=== PATIENT | male | born 2005 | race Caucasian/White ===

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

== ENCOUNTER 2023-07-09 17:42 | Emergency (ER) | payer OTHER, MEDICAID, SELFPAY ==
[2023-07-09 17:56] VITALS: BP 119/68; PULSE 83; RESP 18; TEMP 36.9; O2SAT 99; BMI 16.9
--- NOTE | 2023-07-09 18:01 | ED.URI ---
HPI - URI/Sore Throat General Chief Complaint: Upper Respiratory Symptoms Stated Complaint: cough, stuffy nose, tonsils hurt Time Seen by Provider: 07/09/23 18:01 Source: patient Mode of arrival: Ambulatory History of Present Illness HPI Narrative: 17M daily smoker without chronic medical history presents to the emergency department today with a chief complaint of 24 hours or so of sore throat, stuffy nose, shortness of breath and cough. He denies any obvious fever chills. Denies any chest pain has no vomiting or diarrhea. Related Data Home Medications Medication Instructions Recorded Confirmed No Known Home Medications 10/18/19 10/14/21 Allergies Allergy/AdvReac Type Severity Reaction Status Date / Time No Known Drug Allergies Allergy Verified 07/09/23 17:55 Review of Systems Review of Systems Narrative: GENERAL: See HPI HEENT: See HPI RESPIRATORY: See HPI CARDIOVASCULAR: Denies chest pain, palpitations, orthopnea, edema, GASTROINTESTINAL: Denies nausea, vomiting, abdominal pain, diarrhea, constipation, melena. : Denies dysuria, frequency, incontinence, hematuria, urinary retention. MUSCULOSKELETAL: denies weakness, joint pain, or bony pain SKIN: Denies rash, skin lesions, or other NEUROLOGIC: Denies weakness, headache, numbness, change in speech, confusion, seizures, incoordination. PSYCHIATRIC: No concerning psychosocial issues. 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 Extraoccular muscles are intact bilaterally. There is no subconjunctival hemorrhage or exudate. ENT: Clear drainage in the posterior pharynx, no tonsillar swelling, erythema or exudate, airway patent CHEST: Lungs are clear to auscultation bilaterally and free of wheezes, rales, or rhonchi. Heart rate is regular rhythm, there are no murmurs, clicks, rubs, or gallops. There is no chest wall tenderness. ABD: Abdomen is soft and nontender. There is no guarding or rebound. Bowel sounds are normal in all 4 quadrants. There is no mass or organomegaly. EXT: Full painless ROM of all extremities with no loss of sensation or strength. SKIN: Warm, pink, and dry. No erythema or rash Initial Vital Signs Initial Vital Signs: Vital Signs Temperature 98.4 F 07/09/23 17:56 Pulse Rate 83 07/09/23 17:56 Respiratory Rate 18 07/09/23 17:56 Blood Pressure 119/68 07/09/23 17:56 Pulse Oximetry 99 07/09/23 17:56 Oxygen Delivery Method Room Air 07/09/23 17:56 Course Orders Ordered: ED Orders 07/09/23 18:10 Covid-19 + FLU A/B + RSV - PCR Stat Strep Grp A by PCR Rapid Stat Throat Culture Stat Discontinued Medications Albuterol (Albuterol Hfa Prepack) 1 box MISC SEEINSTR ONE Stop: 07/09/23 18:51 Last Admin: 07/09/23 18:55 Dose: 1 box Documented By: DOMENIC Vital Signs Vital signs: Vital Signs - 8 hr 07/09/23 19:12 Pulse Rate 67 Respiratory Rate 18 Blood Pressure 123/60 Pulse Oximetry 99 Oxygen Delivery Method Room Air MDM - URI/Sore Throat Lab Data Labs: Lab Results 07/09/23 07/09/23 Range/Units 18:10 18:10 SARS-CoV-2 (PCR) Negative (Negative) Influenza A (RT-PCR) Flu a negative (NEGATIVE) Influenza B (RT-PCR) Flu b negative (NEGATIVE) RSV (PCR) Negative (Negative) Group A Strep (PCR) Negative (Negative) MDM Narrative Medical decision making narrative: [17] year old patient presents with typical URI symptoms Multiple etiologies for patient's symptoms considered including, but not limited to: [COVID versus flu versus strep versus other Prior Charts reviewed in our EMR Primary Historian: patient Labs reviewed and interpreted by myself: Respiratory panel negative for COVID, flu and RSV, strep negative, throat culture pending Patient with reassuring history and physical exam, he does have rather typical URI symptoms without signs of sepsis, respiratory distress. He does have some element of bronchospastic cough and for this reason albuterol MDI with spacer and training is ordered and he has improved symptoms. No signs of respiratory distress, no indication for antibiotics Patient's symptoms improved over duration of stay with above-stated therapies. Findings and discharge diagnosis discussed with patient/family followed by verbalization of understanding Return precautions discussed with patient/family whom verbalize understanding of diagnosis and plan Discharge Plan Departure Patient Disposition: Home Clinical Impression: Upper respiratory infection Instructions: Common Cold, Bronchospasm-Adult Activity Restrictions/Additional Instructions: *You have been diagnosed with [various symptoms due to viral upper respiratory infection. The swab for COVID and Flu is negative *What to do: *Please consider the use of [id number] antihistamines such as Zyrtec, Aurea, or Claritin which can dry the secretions that are causing many of these symptoms. *Please use [id number] Tylenol or Motrin for pain, it can be helpful to take it on a schedule for a few days to get ahead of the pain and inflammation * your history and physical exam are very reassuring and there is no indication that the symptoms are due to a bacterial infection, therefore there is no indication for antibiotics. *Please follow up with your primary care provider in 2-3 days, call for an appointment. Let them know you were seen in the Emergency Department and that we ask that you be seen in follow up. We will electronically transmit a record of today's note if your PCP is in our system *If you do not have a primary care provider please contact the [facility] Resource line at [phone]. They will ask some questions about your medical history and help get you set up with a doctor in the community. *Return to Emergency Department if you should have any new, worsening or concerning symptoms such as difficulty breathing, persistent vomiting, shaking chills or other concerning symptoms Prescriptions: No Action No Known Home Medications Stand Alone Forms: Patient Portal/API
[2023-07-09 18:26] LABS: Strep Grp A by PCR Rapid Negative (Negative)
[2023-07-09 18:53] LABS: COVID-19 CEPHEID 4-PLEX PCR Negative (Negative); Influenza A - CEPHEID Flu A NEGATIVE (NEGATIVE); Influenza B - CEPHEID Flu B NEGATIVE (NEGATIVE); Respiratory Syncytial Virus Negative (Negative)
[2023-07-09] MEDS: ALBUTEROL HFA PREPACK 1 BOX MISC (18:55)
[2023-07-09 19:12] VITALS: BP 123/60; PULSE 67; RESP 18; O2SAT 99
== END 2023-07-09 19:13 | disposition home or self-care (01) ==
PROVIDERS: Emergency Provider Emergency Medicine
DX: J06.9 Acute upper respiratory infection, unspecified (principal); Z20.822 Contact with and (suspected) exposure to COVID-19
CPT/HCPCS: 0241U; 87070; 87077; 87651; 99282

== ENCOUNTER → 2024-09-21 15:50 | Outpatient (CLI) | payer OTHER, MEDICAID, SELFPAY ==
--- NOTE | 2024-09-21 15:52 | DI.RAD.S_ITS ---
PROCEDURE: XR CHEST 2V INDICATIONS: Intermittent chest pain, h/o cat-scratch disease TECHNIQUE: 2 views of the chest were acquired. COMPARISON: [facility], CR, XR CHEST 2V, 03/17/2022, 9:44. FINDINGS: Surgical changes and devices: None. Lungs and pleura: Lungs are clear. No pleural effusions or pneumothorax. Mediastinum: Mediastinal contours are normal. Heart size is normal. Bones and chest wall: No suspicious bony abnormalities. Soft tissues appear unremarkable. IMPRESSION: No acute cardiopulmonary pathology. Dictated by: Yaw Uriarte M.D. on 09/21/2024 at 18:18 Approved by: Yaw Uriarte M.D. on 09/21/2024 at 18:19
--- NOTE | 2024-09-21 16:15 | EKG_ITS ---
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
[2024-09-21 17:44] LABS: Hematocrit 41.4 % (41-53); Hemoglobin 13.9 g/dL (13.5-17.5); Mean Corpuscular HGB Conc 33.6 % (30-36); Mean Corpuscular Hemoglobin 30.1 PG (26-34); Mean Corpuscular Volume 89.7 fL (80-100); Platelet Count 257 X10^3/uL (150-400); Red Blood Cell Count 4.61 X10^6/uL (4.5-5.9); Red Cell Distribution Width 13.3 % (11.6-14.8); White Blood Cell Count 7.5 X10^3/uL (4.5-11.0)
[2024-09-21 18:10] LABS: Alanine Aminotransferase 21 IU/L (<50); Albumin 4.8 g/dL (3.5-5.0); Albumin Globulin Ratio 1.8 (1.0-2.8); Alkaline Phosphatase 57 U/L (38-126); Aspartate Aminotransferase 30 IU/L (17-59); BUN Creatinine Ratio 14.3 (6-22); Bilirubin Total 1.1 mg/dL (0.2-1.3); Blood Urea Nitrogen 12 mg/dL (9-20); C-Reactive Protein Quant < 0.5 mg/dL (<1.0); Calcium 9.8 mg/dL (8.4-10.2); Carbon Dioxide 29 mmol/L (22-32); Chloride 102 mmol/L (98-107); Creatine Kinase 190 U/L (55-170); Estimated Glomerular Filt Rate > 60 mL/min (>60); Globulin 2.7 g/dL (1.7-4.1); Glucose 86 mg/dL (70-100); HEMOLYSIS < 15 (0-50); Potassium 4.1 mmol/L (3.4-5.1); Sodium 141 mmol/L (137-145); Total Protein 7.5 g/dL (6.3-8.2)
[2024-09-21 19:44] LABS: Neutrophils Absolute Manual 5700 /uL (3000-5900); Total Cells Counted 100
[2024-09-21 19:45] LABS: RBC Morphology Normal Morphology
[2024-09-21 19:58] LABS: Erythrocyte Sedimentation Rate 2 MM/HR (0-15)
[2024-09-26 10:07] LABS: B. henselae IgG Negative titer (Neg:<1:320); B. henselae IgM Negative titer (Neg:<1:100); B. quintana IgG Negative titer (Neg:<1:320); B. quintana IgM Negative titer (Neg:<1:100)
== END ==
PROVIDERS: PCP Family Medicine; Referring Provider Family Medicine; Visit Provider Family Medicine
DX: A28.1 Cat-scratch disease (principal); M35.3 Polymyalgia rheumatica; M25.50 Pain in unspecified joint
CPT/HCPCS: 36415; 71046; 80053; 82550; 85025; 85651; 86140; 86611; 93005; 93010

== ENCOUNTER 2024-10-18 11:07 | Emergency (ER) | payer OTHER, SELFPAY ==
[2024-10-18 11:09] VITALS: BP 131/71; PULSE 60; RESP 18; TEMP 37.1; O2SAT 98; BMI 19.8
--- NOTE | 2024-10-18 11:41 | ED_ITS ---
HPI - Back Pain/Injury <Mara Bird PA-C - Last Filed: 10/18/24 11:46> General Chief Complaint: Back Pain/Injury Stated Complaint: Mid back pain Time Seen by Provider: 10/18/24 11:23 Source: patient History of Present Illness HPI Narrative: 19-year-old male presents to the ED with 1 day of right-sided mid back pain. Patient states that the pain started upon awakening, spontaneously. No known trauma. Patient states that the pain is in the mid back just lateral to the midline on the right side. Patient states that the pain is worsened with movement of his arms, twisting of the torso, breathing. The pain is localized, does not radiate. No chest pain, shortness of breath, fever, chills, nausea, vomiting. Patient vapes daily, uses marijuana. Occasional alcohol use. Related Data Home Medications Medication Instructions Recorded Confirmed cholecalciferol (vitamin D3) 50 50 mcg PO DAILY 09/21/24 09/21/24 mcg (2,000 unit) capsule ferrous sulfate 325 mg (65 mg 325 mg PO DAILY 09/21/24 09/21/24 iron) tablet (FeroSul) sleep supplement 1 tab PO BEDTIME 09/21/24 09/21/24 vitamin K2 45 mcg capsule 45 mcg PO DAILY 09/21/24 09/21/24 zinc citrate 1 tab PO .qd 09/21/24 09/21/24 Allergies Allergy/AdvReac Type Severity Reaction Status Date / Time No Known Drug Allergies Allergy Verified 09/21/24 14:53 Review of Systems <Mara Bird PA-C - Last Filed: 10/18/24 11:46> Constitutional Constitutional: Denies chills, Denies fatigue, Denies fever(s), Denies frequent falls, Denies lethargy and Denies weakness Eyes Eyes: Denies change in vision, Denies eye discharge, Denies irritation and Denies loss of vision ENT Ears, Nose, Mouth, and Throat: Denies change in voice, Denies dizziness, Denies neck pain, Denies sore throat and Denies throat swelling Cardiovascular Cardiovascular: Denies chest pain, Denies irregular heart rhythm, Denies lightheadedness, Denies palpitations, Denies dyspnea, Denies dyspnea on exertion and Denies orthopnea Respiratory Respiratory: Denies cough, Denies dyspnea, Denies dyspnea on exertion and Denies wheezing Gastrointestinal Gastrointestinal: Denies abdominal pain, Denies change in bowel habits, Denies diarrhea, Denies nausea and Denies vomiting Musculoskeletal Musculoskeletal: Reports back pain, Denies neck pain and Denies numbness Comments: Right-sided mid back pain Integumentary/Breasts Skin/Breast: Denies pruritus, Denies erythema, Denies rash and Denies wounds Neurologic Neurologic: Denies behavioral changes, Denies confusion, Denies dizziness, Denies frequent falls, Denies loss of vision, Denies numbness and Denies weakness Psychiatric Psychiatric: Denies anxiety, Denies behavioral changes, Denies confusion, Denies depression, Denies homicidal ideation and Denies suicidal ideation Endocrine Endocrine: Denies fatigue, Denies flushing and Denies palpitations Hematologic/Lymphatic Hematologic/Lymphatic: Denies easy bruising Allergic/Immunologic Allergic/Immunologic: Denies urticaria, Denies throat swelling and Denies wheezing Patient History <Mara Bird PA-C - Last Filed: 10/18/24 11:46> Medical History Hematochezia Hematuria Joint effusion of knee (Unknown) 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 Smoking Status: Current every day smoker Tobacco: How many years used: 6 alcohol intake: current (3-4 beers weekly) substance use type: marijuana (daily) Smoking Status: Current every day smoker tobacco type: vaping alcohol intake frequency: holidays/special occasions only Exam <Mara Bird PA-C - Last Filed: 10/18/24 11:46> Narrative Exam Narrative: Const General:?cooperative, healthy appearing and comfortable [facility] Head:?normal to inspection Ears:?hearing grossly normal bilaterally Nose:?external nose normal Face and sinus:?normal facial exam and sinuses nontender Mouth:?oral mucosae normal Throat:?posterior oropharynx normal Eyes General:?appearance normal, both eyes and all related structures Neck Neck:?normal visual inspection and no lymphadenopathy noted Resp Effort & Inspection:?normal respiratory effort Auscultation:?clear to auscultation bilaterally Cardio Rate:?regular rate Rhythm:?regular rhythm Musculoskeletal There is some mild tenderness to palpation to the right mid back, lateral to midline. No bruising, rashes. Full range of motion. Strength and sensation is intact. Patient is neurovascularly intact. Neuro General:?patient alert, patient awake and patient oriented x3 Initial Vital Signs Initial Vital Signs: Vital Signs Temperature 98.7 F 10/18/24 11:09 Pulse Rate 60 10/18/24 11:09 Respiratory Rate 18 10/18/24 11:09 Blood Pressure 131/71 10/18/24 11:09 Pulse Oximetry 98 10/18/24 11:09 Oxygen Delivery Method Room Air 10/18/24 11:09 <Star Wheeler MD - Last Filed: 10/21/24 08:24> Initial Vital Signs Initial Vital Signs: Vital Signs Temperature 98.7 F 10/18/24 11:09 Pulse Rate 60 10/18/24 11:09 Respiratory Rate 18 10/18/24 11:09 Blood Pressure 131/71 10/18/24 11:09 Pulse Oximetry 98 10/18/24 11:09 Oxygen Delivery Method Room Air 10/18/24 11:09 Course <Mara Bird PA-C - Last Filed: 10/18/24 11:46> Orders Ordered: Discontinued Medications Ibuprofen (Ibuprofen 400 Mg Tablet) 800 mg PO NOW ONE Stop: 10/18/24 11:40 Last Admin: 10/18/24 11:43 Dose: 800 mg Documented By: LIANA Vital Signs Vital signs: Vital Signs - 8 hr 10/18/24 11:09 Temperature 98.7 F Pulse Rate 60 Respiratory Rate 18 Blood Pressure 131/71 Pulse Oximetry 98 Oxygen Delivery Method Room Air <Star Wheeler MD - Last Filed: 10/21/24 08:24> Orders Ordered: Discontinued Medications Ibuprofen (Ibuprofen 400 Mg Tablet) 800 mg PO NOW ONE Stop: 10/18/24 11:40 Last Admin: 10/18/24 11:43 Dose: 800 mg Documented By: LIANA Vital Signs Vital signs: Vital Signs - 8 hr 10/18/24 11:09 Temperature 98.7 F Pulse Rate 60 Respiratory Rate 18 Blood Pressure 131/71 Pulse Oximetry 98 Oxygen Delivery Method Room Air MDM - Back Pain/Injury <Mara Bird PA-C - Last Filed: 10/18/24 11:46> MDM Narrative Medical decision making narrative: 19-year-old male presents to the ED with 1 day of right-sided mid back pain. Physical exam is reassuring in that the pain is reproducible with movement of the arms and twisting of the torso. There is also tenderness to palpation in the area of concern. Lungs clear to auscultation bilaterally. This is most consistent with a musculoskeletal etiology. Unlikely pneumothorax, PE, other cardiopulmonary etiologies. Patient also states his pain has improved since this morning. It is now a 2/10 after some stretching. Patient was given some ibuprofen, recommend continuing ibuprofen at home until symptoms resolve. Recommend follow-up with PCP. ED return precautions were discussed with patient. Patient verbalized understanding. Medical records reviewed: Yes Discharge Plan Departure Patient Disposition: Home Clinical Impression: Mid back pain Instructions: DI for Back Strain or Sprain Activity Restrictions/Additional Instructions: You were evaluated in the ED today for mid back pain. It appears that your pain is due to a musculoskeletal sprain/strain. You were given some ibuprofen in the ED. You may continue taking ibuprofen at home. You may take 800 mg of ibuprofen every 8 hours with food. Please follow-up with your PCP as soon as possible. Return to the ED if you have worsening symptoms, chest pain, shortness of breath. Prescriptions: No Action zinc citrate 1 tab PO .qd vitamin K2 45 mcg capsule 45 mcg PO DAILY cholecalciferol (vitamin D3) 50 mcg (2,000 unit) capsule 50 mcg PO DAILY ferrous sulfate [FeroSul] 325 mg (65 mg iron) tablet 325 mg PO DAILY sleep supplement 1 tab PO BEDTIME Referrals: Nathaniel Masterson MD [Primary Care Provider] - Stand Alone Forms: Patient Portal/API/Survey ED Sign-out <Star Wheeler MD - Last Filed: 10/21/24 08:24> Cosign ED Attending Cosignature Attestation: I was immediately available in the department for consultation. ?This documentation has been reviewed and I agree with assessment and plan. Supervised by Star Wheeler MD
[2024-10-18] MEDS: IBUPROFEN 400 MG TABLET 800 MG PO (11:43)
[2024-10-18 11:47] VITALS: PULSE 62; RESP 18; O2SAT 99
== END 2024-10-18 11:49 | disposition home or self-care (01) ==
PROVIDERS: Emergency Provider Student in an Organized Health Care Education/Training Program; PCP Family Medicine
DX: M54.89 Other dorsalgia (principal)
CPT/HCPCS: 99283

== ENCOUNTER 2025-03-17 19:41 | Emergency (ER) | payer OTHER, SELFPAY ==
[2025-03-17 19:53] VITALS: BP 112/72; PULSE 64; RESP 16; TEMP 36.9; O2SAT 97; BMI 17.9
--- NOTE | 2025-03-17 20:02 | EKG_ITS ---
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
[2025-03-17 20:44] LABS: Add Manual Diff / Slide Review NO; Basophils Absolute Auto 100 /uL (0-100); Basophils Percent Auto 0.6 % (0-2); Eosinophils Absolute Auto 300 /uL (0-450); Eosinophils Percent Auto 3.4 % (2-4); Hematocrit 42.2 % (41-53); Hemoglobin 14.3 g/dL (13.5-17.5); Lymphocytes Absolute Auto 2200 /uL (1100-4500); Lymphocytes Percent Auto 25.5 % (25-40); Mean Corpuscular HGB Conc 33.9 % (30-36); Mean Corpuscular Hemoglobin 30.7 PG (26-34); Mean Corpuscular Volume 90.7 fL (80-100); Monocytes Absolute Auto 500 /uL (0-900); Neutrophils Absolute Auto 5600 /uL (1500-7000); Neutrophils Percent Auto 64.5 % (50-75); Platelet Count 226 X10^3/uL (150-400); Red Blood Cell Count 4.65 X10^6/uL (4.5-5.9); Red Cell Distribution Width 13.4 % (11.6-14.8); White Blood Cell Count 8.6 X10^3/uL (4.5-11.0)
--- NOTE | 2025-03-17 20:48 | PC.NURSE ---
patient became sweaty and pale with iv start. feeling better now, steady gait.
[2025-03-17 20:52] LABS: Alanine Aminotransferase 20 IU/L (<50); Albumin 4.8 g/dL (3.5-5.0); Albumin Globulin Ratio 1.5 (1.0-2.8); Alkaline Phosphatase 43 U/L (38-126); Aspartate Aminotransferase 29 IU/L (17-59); BUN Creatinine Ratio 16.9 (6-22); Bilirubin Total 0.6 mg/dL (0.2-1.3); Blood Urea Nitrogen 15 mg/dL (9-20); Calcium 9.5 mg/dL (8.4-10.2); Carbon Dioxide 30 mmol/L (22-32); Chloride 101 mmol/L (98-107); Estimated Glomerular Filt Rate > 60 mL/min (>60); Globulin 3.1 g/dL (1.7-4.1); Glucose 79 mg/dL (70-99); HEMOLYSIS 16 (0-50); Lipase 56 U/L (23-300); Potassium 4.6 mmol/L (3.4-5.1); Sodium 141 mmol/L (137-145); Total Protein 7.9 g/dL (6.3-8.2)
--- NOTE | 2025-03-17 21:12 | EKG_ITS ---
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
--- NOTE | 2025-03-17 21:12 | DI.RAD.S_ITS ---
PROCEDURE: XR CHEST 2V INDICATIONS: chest pain TECHNIQUE: 2 views of the chest were acquired. COMPARISON: [facility], CR, XR CHEST 2V, 09/21/2024, 15:49. [facility], CR, XR CHEST 2V, 03/17/2022, 9:44. FINDINGS AND IMPRESSION: No airspace consolidation or pleural effusion. Normal heart size. Unremarkable osseous structures. Dictated by: Davide Garcia M.D. on 03/17/2025 at 21:22 Approved by: Davide Garcia M.D. on 03/17/2025 at 21:23
[2025-03-17 21:39] VITALS: BP 116/60; PULSE 55; RESP 16; O2SAT 99
--- NOTE | 2025-03-17 22:46 | ED.GENADULT ---
HPI - General Adult General Chief complaint: Abdominal Pain Stated complaint: pain in ribs chest Time Seen by Provider: 03/17/25 21:11 Source: patient Mode of arrival: Ambulatory History of Present Illness HPI narrative: 19-year-old male has had intermittent lower chest upper abdominal discomfort, sometimes pleuritic, sometimes worse with movements. No injury trauma new activities. No fevers or chills. No breathlessness or palpitation symptoms. He is not aware of having any blood clot problems with legs or lungs, no leg pain or swelling symptoms. No history of aortic problems. No problems known with stomach, ulcer, nausea or vomiting, black or red stools. No treatment tried specifically for this discomfort. Related Data Home Medications ?Medication ?Instructions ?Recorded ?Confirmed cholecalciferol (vitamin D3) 50 50 mcg PO DAILY 09/21/24 09/21/24 mcg (2,000 unit) capsule ferrous sulfate 325 mg (65 mg 325 mg PO DAILY 09/21/24 09/21/24 iron) tablet (FeroSul) sleep supplement 1 tab PO BEDTIME 09/21/24 09/21/24 vitamin K2 45 mcg capsule 45 mcg PO DAILY 09/21/24 09/21/24 zinc citrate 1 tab PO .qd 09/21/24 09/21/24 Allergies Allergy/AdvReac Type Severity Reaction Status Date / Time No Known Drug Allergies Allergy Verified 09/21/24 14:53 Patient History Medical History Hematochezia Hematuria Joint effusion of knee (Unknown) 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 Tobacco: How many years used: 6 alcohol intake: current (3-4 beers weekly) substance use type: marijuana (daily) tobacco type: vaping alcohol intake frequency: holidays/special occasions only Exam Narrative Exam Narrative: GENERAL: Well-developed patient, in mild distress. Thin and tall body habitus. HEAD: Atraumatic. Normocephalic. EYES: Pupils equal round and reactive. Extraocular motions intact. No scleral icterus. No injection or drainage. ENT: Nose without bleeding, purulent drainage. Throat without erythema, tonsillar hypertrophy or exudate. Airway patent. NECK: Trachea midline. Non tender CARDIOVASCULAR: Regular rate and rhythm without murmurs, gallops, or rubs. RESPIRATORY: Clear to auscultation. Breath sounds equal bilaterally. No wheezes, rales, or rhonchi. GASTROINTESTINAL: Abdomen soft, non-tender, nondistended. EXTREMITIES: No edema or joint tenderness. BACK: Nontender without deformity or crepitance. No flank tenderness. NEURO: AOx3. Motor functions grossly nonfocal SKIN: No rash or erythema of visible areas Initial Vital Signs Initial Vital Signs: Vital Signs Temperature 98.4 F 03/17/25 19:53 Pulse Rate 64 03/17/25 19:53 Respiratory Rate 16 03/17/25 19:53 Blood Pressure 112/72 03/17/25 19:53 Pulse Oximetry 97 03/17/25 19:53 Oxygen Delivery Method Room Air 03/17/25 19:53 Course Orders Ordered: ED Orders 03/17/25 20:02 EKG-12 Lead Stat 03/17/25 20:20 Complete Blood Count AUTO DIFF Stat Comprehensive Metabolic Panel Stat Lipase Stat 03/17/25 21:12 XR chest 2V Stat EKG-12 Lead Stat 03/17/25 22:34 Troponin I Stat 03/17/25 22:51 CT angio chest PE protocol Stat 03/17/25 22:57 CT abdomen pelvis w con Stat Discontinued Medications Sodium Chloride (Normal Saline 0.9%) 1,000 mls @ 1,000 mls/hr IV BOLUS ONE Stop: 03/17/25 23:57 Last Admin: 03/17/25 23:59 Dose: 1,000 mls/hr Documented By: HNG Ondansetron HCl (Ondansetron 4 Mg/2 Ml Inj) 4 mg IV NOW PRN PRN Reason: Nausea And Vomiting Ondansetron HCl (Ondansetron 4 Mg Odt) 4 mg PO NOW PRN PRN Reason: Nausea And Vomiting Vital Signs Vital signs: Vital Signs - 8 hr 03/17/25 19:53 03/17/25 21:39 03/18/25 00:46 Temperature 98.4 F Pulse Rate 64 55 L 67 Respiratory Rate 16 16 18 Blood Pressure 112/72 116/60 114/72 Pulse Oximetry 97 99 97 Oxygen Delivery Method Room Air Room Air Room Air Medical Decision Making Lab Data Lab results reviewed: Yes I reviewed the patient's lab results. Lab results narrative: White blood cell count 8600, hemoglobin 14.3, platelets adequate. Glucose 79. Renal function normal. Normal electrolytes and serum CO2. Liver functions and lipase normal. 03/17/25 20:20 03/17/25 20:20 Labs: Lab Results 03/17/25 03/17/25 Range/Units 20:20 22:34 WBC 8.6 (4.5-11.0) X10^3/uL RBC 4.65 (4.5-5.9) X10^6/uL Hgb 14.3 (13.5-17.5) g/dL Hct 42.2 (41-53) % MCV 90.7 (80-100) fL MCH 30.7 (26-34) PG MCHC 33.9 (30-36) % RDW 13.4 (11.6-14.8) % Plt Count 226 (150-400) X10^3/uL Neut % (Auto) 64.5 (50-75) % Lymph % (Auto) 25.5 (25-40) % Kinney % (Auto) 6.0 (3-14) % Eos % (Auto) 3.4 (2-4) % Baso % (Auto) 0.6 (0-2) % Neut # (Auto) 5600 (4067-6997) /uL Lymph # (Auto) 2200 (5014-2977) /uL Kinney # (Auto) 500 (0-900) /uL Eos # (Auto) 300 (0-450) /uL Baso # (Auto) 100 (0-100) /uL Sodium 141 (137-145) mmol/L Potassium 4.6 (3.4-5.1) mmol/L Chloride 101 (98-107) mmol/L Carbon Dioxide 30 (22-32) mmol/L BUN 15 (9-20) mg/dL Creatinine 0.89 (0.66-1.25) mg/dL Estimated GFR > 60 (>60) mL/min BUN/Creatinine Ratio 16.9 (6-22) Glucose 79 (70-99) mg/dL Calcium 9.5 (8.4-10.2) mg/dL Total Bilirubin 0.6 (0.2-1.3) mg/dL AST 29 (17-59) IU/L ALT 20 (<50) IU/L Alkaline Phosphatase 43 (38-126) U/L Troponin I 0.013 (0.01-0.034) ng/mL Total Protein 7.9 (6.3-8.2) g/dL Albumin 4.8 (3.5-5.0) g/dL Globulin 3.1 (1.7-4.1) g/dL Albumin/Globulin Ratio 1.5 (1.0-2.8) Lipase 56 (23-300) U/L Imaging Data Chest x-ray: Radiologist's Impression: [address] [address] XRay Report Signed Patient: Demarcus Cox MR#: [id number] : 2005 Acct:[id number] Age/Sex: 19 / M Date of Service: 03/17/25 Loc: ED Accession Number: [id number] Procedure: XR chest 2V Ordering Provider: Gato Tate MD PROCEDURE: XR CHEST 2V INDICATIONS: chest pain TECHNIQUE: 2 views of the chest were acquired. COMPARISON: [facility], CR, XR CHEST 2V, 09/21/2024, 15:49. [facility], , XR CHEST 2V, 03/17/2022, 9:44. FINDINGS AND IMPRESSION: No airspace consolidation or pleural effusion. Normal heart size. Unremarkable osseous structures. Dictated by: Davide Garcia M.D. on 03/17/2025 at 21:22 Approved by: Davide Garcia M.D. on 03/17/2025 at 21:23 CTA chest: Radiologist's Impression: [address] [address] [address] Scan Report Signed Patient: Demarcus Cox MR#: [id number] : 2005 Acct:[id number] Age/Sex: 19 / M Date of Service: 03/17/25 Loc: ED Accession Number: [id number] Procedure: CT angio chest PE protocol Ordering Provider: Gato Tate MD PROCEDURE: CT ANGIO CHEST PE PROTOCOL INDICATIONS: chest pain, abnml EKG, eval for PE TECHNIQUE: After the administration of intravenous contrast, 2 mm thick sections acquired from the pulmonary apices to the posterior costophrenic angles. 3-dimensional maximum intensity projection (MIP) coronal and sagittal reformats were then acquired through the thorax. For radiation dose reduction, the following was used: automated exposure control, adjustment of mA and/or kV according to patient size. COMPARISON: [facility], CR, XR CHEST 2V, 03/17/2025, 21:10. FINDINGS: Image quality: Diagnostic Lungs and pleura: no airspace consolidation or pleural effusion. Mediastinum, heart, and esophagus: No acute pulmonary embolism. Unremarkable esophagus. No pathologic lymph nodes by size criteria. Normal heart size. Chest wall and thyroid: Unremarkable Upper abdomen: Separately dictated. Bones: No aggressive appearing osseous abnormality. IMPRESSION: No acute pulmonary embolism. No dense airspace disease or pleural effusion identified in the lungs. Dictated by: Davide Garcia M.D. on 03/17/2025 at 23:35 Approved by: Davide Garcia M.D. on 03/17/2025 at 23:38 CT abdomen and pelvis: Radiologist's Impression: [place] [address] CT Scan Report Signed Patient: Demarcus Cox MR#: [id number] : 2005 Acct:[id number] Age/Sex: 19 / M Date of Service: 03/17/25 Loc: ED Accession Number: [id number] Procedure: CT abdomen pelvis w con Ordering Provider: Gato Tate MD PROCEDURE: CT ABDOMEN PELVIS W CON INDICATIONS: abdom pain TECHNIQUE: After the administration of intravenous contrast, axial sections acquired from the lung bases to the pubic symphysis. Coronal and sagittal reformats were performed. For radiation dose reduction, the following was used: automated exposure control, adjustment of mA and/or kV according to patient size. COMPARISON: None. FINDINGS: Image quality: Diagnostic Lower chest: Unremarkable lung bases Mildly patulous distal esophagus Liver: Unremarkable Gallbladder and biliary system: Under distended, nondilated Pancreas: No ductal dilation Spleen: Heterogeneous perfusion likely due to contrast phase. Borderline enlarged at 14 cm Adrenals: No discrete nodules Kidneys: Mild bilateral pelviectasis without definite obstructing calcified stone. No solid renal mass Vessels and lymph nodes: Main portal vein is patent. No abdominal aortic aneurysm. No enlarged lymph nodes by size criteria. Bowel and peritoneum: No evidence of small bowel obstruction. There is moderate gastric distention. No drainable abscess or ascites. Moderate to large overall colonic and rectal fecal loading. No significant focal inflammatory changes. nondilated appendix. Body wall: Unremarkable Pelvis: Mild bladder wall thickening. Bones: No aggressive appearing osseous abnormality IMPRESSION: Nondilated appendix. Moderate to large colonic fecal loading. No bowel obstruction. No drainable abscess or ascites. Moderate gastric distention. Mild bladder wall thickening, correlate urinalysis for infection. Other findings above. Dictated by: Davide Garcia M.D. on 03/17/2025 at 23:38 Approved by: Davide Garcia M.D. on 03/17/2025 at 23:42 ECG Data Attestation: I personally reviewed and interpreted this ECG as follows: Interpretation: 2030, junctional bradycardia with rate 42, could not discern definite P waves. No obvious ST segment elevation or depression changes. Some baseline artifact however. QRS 104, QTC 385. 2225, sinus bradycardia with ventricular rate 46, RSR prime pattern in lead V1. IL 158, QRS 108, QTC 381. MDM Narrative Medical decision making narrative: 19-year-old male with chest discomfort upper abdominal discomfort for the last week, screening EKG showed bradycardia possibly junctional, no obvious definite P waves, on subsequent EKG sinus bradycardia, with RSR prime pattern in lead V1. Patient is quite tall and thin, no chart history Marfanism documented. No history of pulmonary embolus. Unclear cause of RSR prime anterior EKG change, none for comparison. No tenderness on exam. Screening x-rays unremarkable. Labs unremarkable. CTA chest ordered, with IV only CT abdomen and pelvis imaging. Initial labs: White blood cell count 8600, hemoglobin 14.3, platelets adequate. Glucose 79. Renal function normal. Normal electrolytes and serum CO2. Liver functions and lipase normal. Chest x-ray no acute changes, see radiology report. 2330, heart rate 55, blood pressure 116/60. CT imaging study results pending. CTA chest. No pulmonary embolism. No acute changes infiltrates, normal aorta. See radiology report. CT abdomen and pelvis. No acute changes. Stool burden noted. No obstructive changes. No vascular abnormalities. See radiology report. Unclear cause lower chest upper abdominal discomfort, consider acid related, ALIYA/other. Trial of [id number] antacid advised. Further workup as an outpatient for now. Home with family. Discharge Plan Departure Patient Disposition: Home Clinical Impression: Epigastric abdominal pain, Chest pain, Abnormal EKG, Sinus bradycardia Activity Restrictions/Additional Instructions: Upper central abdominal and lower chest discomfort of unclear cause. Normal EKG showing RSR prime changes in anterior leads of unclear etiology. CT angiogram of the chest showed no acute process. Normal aorta. No blood clots to the lungs confirmed. CT abdomen and pelvis showed no acute process, though did mentioned presence of stool. No obstruction pattern in the bowel. Location of the symptoms suspicious for acid problem, as this region of discomfort could happen with gastritis inflammation of the stomach, with esophagitis inflammation of the esophagus, gastroesophageal reflux, or combination of the above, or some other process. Consider trial of famotidine/Pepcid [id number]. Consider upper endoscopy if not improving. Consider further workup if any needed for your abnormal EKG as an outpatient for now. Prescriptions: No Action zinc citrate 1 tab PO .qd vitamin K2 45 mcg capsule 45 mcg PO DAILY cholecalciferol (vitamin D3) 50 mcg (2,000 unit) capsule 50 mcg PO DAILY ferrous sulfate [FeroSul] 325 mg (65 mg iron) tablet 325 mg PO DAILY sleep supplement 1 tab PO BEDTIME Referrals: Nathaniel Masterson MD [Primary Care Provider, [facility]] Stand Alone Forms: Patient Portal/API
--- NOTE | 2025-03-17 22:51 | DI.CT.S_ITS ---
PROCEDURE: CT ANGIO CHEST PE PROTOCOL INDICATIONS: chest pain, abnml EKG, eval for PE TECHNIQUE: After the administration of intravenous contrast, 2 mm thick sections acquired from the pulmonary apices to the posterior costophrenic angles. 3-dimensional maximum intensity projection (MIP) coronal and sagittal reformats were then acquired through the thorax. For radiation dose reduction, the following was used: automated exposure control, adjustment of mA and/or kV according to patient size. COMPARISON: [facility], CR, XR CHEST 2V, 03/17/2025, 21:10. FINDINGS: Image quality: Diagnostic Lungs and pleura: no airspace consolidation or pleural effusion. Mediastinum, heart, and esophagus: No acute pulmonary embolism. Unremarkable esophagus. No pathologic lymph nodes by size criteria. Normal heart size. Chest wall and thyroid: Unremarkable Upper abdomen: Separately dictated. Bones: No aggressive appearing osseous abnormality. IMPRESSION: No acute pulmonary embolism. No dense airspace disease or pleural effusion identified in the lungs. Dictated by: Davide Garcia M.D. on 03/17/2025 at 23:35 Approved by: Davide Garcia M.D. on 03/17/2025 at 23:38
--- NOTE | 2025-03-17 22:57 | DI.CT.S_ITS ---
PROCEDURE: CT ABDOMEN PELVIS W CON INDICATIONS: abdom pain TECHNIQUE: After the administration of intravenous contrast, axial sections acquired from the lung bases to the pubic symphysis. Coronal and sagittal reformats were performed. For radiation dose reduction, the following was used: automated exposure control, adjustment of mA and/or kV according to patient size. COMPARISON: None. FINDINGS: Image quality: Diagnostic Lower chest: Unremarkable lung bases Mildly patulous distal esophagus Liver: Unremarkable Gallbladder and biliary system: Under distended, nondilated Pancreas: No ductal dilation Spleen: Heterogeneous perfusion likely due to contrast phase. Borderline enlarged at 14 cm Adrenals: No discrete nodules Kidneys: Mild bilateral pelviectasis without definite obstructing calcified stone. No solid renal mass Vessels and lymph nodes: Main portal vein is patent. No abdominal aortic aneurysm. No enlarged lymph nodes by size criteria. Bowel and peritoneum: No evidence of small bowel obstruction. There is moderate gastric distention. No drainable abscess or ascites. Moderate to large overall colonic and rectal fecal loading. No significant focal inflammatory changes. nondilated appendix. Body wall: Unremarkable Pelvis: Mild bladder wall thickening. Bones: No aggressive appearing osseous abnormality IMPRESSION: Nondilated appendix. Moderate to large colonic fecal loading. No bowel obstruction. No drainable abscess or ascites. Moderate gastric distention. Mild bladder wall thickening, correlate urinalysis for infection. Other findings above. Dictated by: Davide Garcia M.D. on 03/17/2025 at 23:38 Approved by: Davide Garcia M.D. on 03/17/2025 at 23:42
[2025-03-17 23:36] LABS: Troponin I 0.013 ng/mL (0.01-0.034)
[2025-03-17] MEDS: SODIUM CHLORIDE 0.9% 1,000 ML 1000 ML IV (23:59)
[2025-03-18 00:46] VITALS: BP 114/72; PULSE 67; RESP 18; O2SAT 97
== END 2025-03-18 00:55 | disposition home or self-care (01) ==
PROVIDERS: Emergency Provider Emergency Medicine; PCP Family Medicine
DX: R10.13 Epigastric pain (principal); R07.9 Chest pain, unspecified; R00.1 Bradycardia, unspecified; R94.31 Abnormal electrocardiogram [ECG] [EKG]
CPT/HCPCS: 36415; 71046; 71275; 74177; 80053; 83690; 84484; 85025; 93005; 99284; Q9967

== ENCOUNTER → 2025-03-22 10:55 | Outpatient (CLI) | payer OTHER, BC, SELFPAY | LOC: LAB 10:57 | PROVIDERS: PCP Family Medicine; Visit Provider Family Medicine | DX: R39.15 Urgency of urination (principal) | CPT/HCPCS: 87086 ==

== ENCOUNTER 2025-09-03 10:27 | Emergency (ER) | payer SELFPAY ==
[2025-09-03 10:34] VITALS: BP 137/80; PULSE 82; RESP 15; TEMP 36.6; O2SAT 99; BMI 19.2
== END 2025-09-03 11:33 | disposition left against medical advice (07) ==
PROVIDERS: Emergency Provider Emergency Medicine; PCP Family Medicine
DX: Z53.21 Procedure and treatment not carried out due to patient leaving prior to being seen by health care provider (principal)
CPT/HCPCS: 99281

== ENCOUNTER 2025-09-04 11:10 | Emergency (ER) | payer SELFPAY ==
[2025-09-04 11:23] VITALS: BP 128/70; PULSE 85; RESP 14; TEMP 36.8; O2SAT 96; BMI 19.2
--- NOTE | 2025-09-04 11:33 | DI.CT.S_ITS ---
PROCEDURE: CT CERVICAL SPINE WO CON INDICATIONS: neck pain TECHNIQUE: Noncontrast 3 mm thick sections acquired from the skull base to the T4 level. Sagittal and coronal reformats were then constructed. For radiation dose reduction, the following was used: automated exposure control, adjustment of mA and/or kV according to patient size. COMPARISON: None. FINDINGS: Image quality: Excellent. Bones: No acute fractures or dislocations. Visualized superior ribs are intact. Straightening and mild levoconvex curvature of the cervical spine. Soft tissues: Prevertebral soft tissues are normal in thickness. No paravertebral hematomas. No apical pneumothoraces. IMPRESSION: 1. No acute displaced fracture or traumatic subluxation. 2. Straightening of the cervical spine and mild levoconvex curvature may be secondary to muscle spasm or positioning. Approved by: Iban Cunningham M.D. on 09/04/2025 at 12:24
[2025-09-04] MEDS: CYCLOBENZAPRINE 10 MG TABLET PO (11:43)
[2025-09-04] MEDS: KETOROLAC 30 MG/ML VIAL IM (11:44)
--- NOTE | 2025-09-04 12:33 | ED_ITS ---
HPI - Neck Pain/Injury <Mara Bird PA-C - Last Filed: 09/04/25 16:00> General Chief Complaint: Neck Pain/Injury Stated Complaint: Fell out of bed, Hurt neck Time Seen by Provider: 09/04/25 12:13 Mode of arrival: Ambulatory History of Present Illness HPI Narrative: 20-year-old male presents to the ED with 2 days of left-sided neck pain. Patient states he was stretching yesterday, when he felt a pop in the left side of his neck, following which his has a stiff neck. Endorses pain with movement of the head. Patient endorses midline cervical pain. No numbness, tingling, weakness. Related Data Previous Rx's ?Medication ?Instructions ?Recorded cyclobenzaprine 10 mg tablet 10 mg PO TID PRN muscle s pas #20 09/04/25 tabs Allergies Allergy/AdvReac Type Severity Reaction Status Date / Time No Known Drug Allergies Allergy Verified 09/04/25 11:28 Review of Systems <Mara Bird PA-C - Last Filed: 09/04/25 16:00> Constitutional Constitutional: Denies chills, Denies fatigue, Denies fever(s), Denies frequent falls, Denies lethargy and Denies weakness Eyes Eyes: Denies change in vision, Denies eye discharge, Denies irritation and Denies loss of vision ENT Ears, Nose, Mouth, and Throat: Denies change in voice, Denies dizziness, Reports neck pain, Denies sore throat and Denies throat swelling Cardiovascular Cardiovascular: Denies chest pain, Denies irregular heart rhythm, Denies lightheadedness, Denies palpitations, Denies dyspnea, Denies dyspnea on exertion and Denies orthopnea Respiratory Respiratory: Denies cough, Denies dyspnea, Denies dyspnea on exertion and Denies wheezing Gastrointestinal Gastrointestinal: Denies abdominal pain, Denies change in bowel habits, Denies diarrhea, Denies nausea and Denies vomiting Musculoskeletal Musculoskeletal: Reports neck pain and Denies numbness Integumentary/Breasts Skin/Breast: Denies pruritus, Denies erythema, Denies rash and Denies wounds Neurologic Neurologic: Denies behavioral changes, Denies confusion, Denies dizziness, Denies frequent falls, Denies loss of vision, Denies numbness and Denies weakness Psychiatric Psychiatric: Denies anxiety, Denies behavioral changes, Denies confusion, Denies depression, Denies homicidal ideation and Denies suicidal ideation Endocrine Endocrine: Denies fatigue, Denies flushing and Denies palpitations Hematologic/Lymphatic Hematologic/Lymphatic: Denies easy bruising Allergic/Immunologic Allergic/Immunologic: Denies urticaria, Denies throat swelling and Denies wheezing Patient History <Mara Bird PA-C - Last Filed: 09/04/25 16:00> Medical History Hematochezia Hematuria Joint effusion of knee (Unknown) 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 Tobacco: How many years used: 6 alcohol intake: current (3-4 beers weekly) substance use type: marijuana (daily) tobacco type: vaping alcohol intake frequency: holidays/special occasions only Exam <Mara Bird PA-C - Last Filed: 09/04/25 16:00> Narrative Exam Narrative: Const General:?cooperative, healthy appearing and comfortable [facility] Head:?normal to inspection Ears:?hearing grossly normal bilaterally Nose:?external nose normal Face and sinus:?normal facial exam and sinuses nontender Mouth:?oral mucosae normal Throat:?posterior oropharynx normal Eyes General:?appearance normal, both eyes and all related structures Neck Neck:?normal visual inspection and no lymphadenopathy noted Resp Effort & Inspection:?normal respiratory effort Auscultation:?clear to auscultation bilaterally Cardio Rate:?regular rate Rhythm:?regular rhythm Musculoskeletal There is some midline tenderness to palpation in the cervical region. Range of motion of neck limited by pain. No erythema, bruising. Neurovascularly intact. Neuro General:?patient alert, patient awake and patient oriented x3 Initial Vital Signs Initial Vital Signs: Vital Signs Temperature 98.3 F 09/04/25 11:23 Pulse Rate 85 09/04/25 11:23 Respiratory Rate 14 09/04/25 11:23 Blood Pressure 128/70 09/04/25 11:23 Pulse Oximetry 96 09/04/25 11:23 Oxygen Delivery Method Room Air 09/04/25 11:23 <Betsy Camejo DO - Last Filed: 09/12/25 01:32> Initial Vital Signs Initial Vital Signs: Vital Signs Temperature 98.3 F 09/04/25 11:23 Pulse Rate 85 09/04/25 11:23 Respiratory Rate 14 09/04/25 11:23 Blood Pressure 128/70 09/04/25 11:23 Pulse Oximetry 96 09/04/25 11:23 Oxygen Delivery Method Room Air 09/04/25 11:23 Course <Mara Bird PA-C - Last Filed: 09/04/25 16:00> Orders Ordered: Discontinued Medications Cyclobenzaprine HCl (Cyclobenzaprine 10 Mg Tablet) 10 mg PO NOW ONE Stop: 09/04/25 11:34 Last Admin: 09/04/25 11:43 Dose: 10 mg Documented By: VALENTINA Ketorolac Tromethamine (Ketorolac 30 Mg/Ml Vial) 30 mg IM NOW ONE Stop: 09/04/25 11:35 Last Admin: 09/04/25 11:44 Dose: 30 mg Documented By: VALENTINA Vital Signs Vital signs: Vital Signs - 8 hr 09/04/25 11:23 09/04/25 14:01 Temperature 98.3 F Pulse Rate 85 50 L Respiratory Rate 14 16 Blood Pressure 128/70 124/73 Pulse Oximetry 96 98 Oxygen Delivery Method Room Air Room Air <Betsy Camejo DO - Last Filed: 09/12/25 01:32> Orders Ordered: Discontinued Medications Cyclobenzaprine HCl (Cyclobenzaprine 10 Mg Tablet) 10 mg PO NOW ONE Stop: 09/04/25 11:34 Last Admin: 09/04/25 11:43 Dose: 10 mg Documented By: VALENTINA Ketorolac Tromethamine (Ketorolac 30 Mg/Ml Vial) 30 mg IM NOW ONE Stop: 09/04/25 11:35 Last Admin: 09/04/25 11:44 Dose: 30 mg Documented By: VALENTINA Vital Signs Vital signs: Vital Signs - 8 hr 09/04/25 11:23 09/04/25 14:01 Temperature 98.3 F Pulse Rate 85 50 L Respiratory Rate 14 16 Blood Pressure 128/70 124/73 Pulse Oximetry 96 98 Oxygen Delivery Method Room Air Room Air MDM - Neck Pain/Injury <Mara Bird PA-C - Last Filed: 09/04/25 16:00> [facility] Narrative Medical decision making narrative: 20-year-old male presents to the ED with 2 days of left-sided neck pain. Concern for fracture/dislocation versus musculoskeletal sprain/strain versus other. Will obtain CT cervical spine. Will give Flexeril, Toradol for pain. Will reassess. Patient's symptoms improved with the medications. CT scan shows no acute displaced fracture or traumatic subluxation. Straightening of the cervical spine and mild levoconvex curvature may be secondary to muscle spasm or positioning. Discussed findings with patient. Recommend continuing ibuprofen, Flexeril as needed. Recommend follow-up with PCP as soon as possible. ED return precautions discussed with patient. Patient verbalized understanding. Medical records reviewed: Yes Discharge Plan Departure Patient Disposition: Home Clinical Impression: Neck pain Instructions: DI for Neck Pain Activity Restrictions/Additional Instructions: You were evaluated in the emergency department today for neck pain. The CT scan did not show any fractures or dislocations. Your symptoms are likely due to a musculoskeletal sprain/strain of the neck. You may continue taking Flexeril as needed. You may also take 800 mg of ibuprofen every 8 hours with food. Please follow-up with your PCP as soon as possible. Return to the ED if you have worsening symptoms, numbness, tingling, weakness. Prescriptions: New cyclobenzaprine 10 mg tablet 10 mg PO TID PRN (Reason: muscle spasm) Qty: 20 0RF Referrals: Nathaniel Masterson MD [Primary Care Provider, Family Practice] Stand Alone Forms: Patient Portal/API, Work Release Note ED Sign-out <Betsy Camejo DO - Last Filed: 09/12/25 01:32> Cosign ED Attending Christianaature Attestation: I was available for consultation.
[2025-09-04 14:01] VITALS: BP 124/73; PULSE 50; RESP 16; O2SAT 98
[2025-09-04 16:10] VITALS: BP 145/97; PULSE 78; RESP 18; TEMP 36.8; O2SAT 98
== END 2025-09-04 16:00 | disposition home or self-care (01) ==
PROVIDERS: Emergency Provider Student in an Organized Health Care Education/Training Program; PCP Family Medicine
DX: M54.2 Cervicalgia (principal)
CPT/HCPCS: 72125; 96372; 99283; 99284; J1885